=== PATIENT | male | born 2000 | race Two or more races ===

== ENCOUNTER 2020-09-04 17:28 | Emergency (ER) | payer BC, OTHER ==
[~2020-09-04] VITALS: Ht 172.7 cm; Wt 106.6 kg
[2020-09-04] MEDS ORDERED: TETANUS-DIPTH-ACEL PERTUSSIS 0.5ML SYR Tdap IM ONE (22:30)
[2020-09-04] MEDS ORDERED: LIDOCAINE 1% HCL (LOCAL ANESTH.) INJ 20ML MDV ONE (23:33)
[2020-09-04] MEDS ORDERED: LIDOCAINE W/ EPINEPHRINE 1% 20ML VIAL ONE (23:35)
[2020-09-05 01:25] VITALS: BP 119/74
== END 2020-09-05 01:28 | disposition home or self-care (01) ==
LOC: ER 17:28
DX: S01.01XA Laceration without foreign body of scalp, initial encounter (principal); X58.XXXA Exposure to other specified factors, initial encounter; Y93.89 Activity, other specified; Y92.89 Other specified places as the place of occurrence of the external cause; Y99.8 Other external cause status
CPT/HCPCS: 12004; 70450; 72125; 90471; 90715; J2001